=== PATIENT | female | born 1960 | race Caucasian/White ===

== ENCOUNTER 2024-02-07 11:10 | Outpatient (CLI) | payer OTHER, SELFPAY ==
--- NOTE | ~2024-02-07 | MR_ITS ---
MRI of the left knee Clinical history: Pain Technique: Coronal proton density and proton density-weighted images, sagittal proton-density and T2 fat-sat images, and axial proton-density fat-saturated images were acquired. Findings: Anterior and posterior cruciate ligaments are intact. Medial collateral ligament and the la teral collateral ligament conflux are intact. Popliteus tendon is intact. There is probable complex tear of the posterior horn/body of the medial meniscus. No definite lateral meniscal tear seen. There is grade IV chondromalacia the medial tibial plateau with subchondral reactive marrow edema and early subchondral cyst formation. Lateral compartment articular cartilage is well preserved. There i s extensive grade IV chondromalacia patella at the apex and medial patellar facet. There is mild diff use chondral thinning of the femoral trochlea. Small tricompartmental osteophytes are present. Extensor mechanism is intact. Small joint effusion present, with small Hillman's cyst. There is mild ed tiam of the quadriceps fat pad. Impression: Complex tearing of the posterior horn/body of the medial meniscus. 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 Small joint effusion with small Hillman's cyst. Edema quadriceps fat pad could indicate impingement. Reviewed, dictated and finalized at location . Impression: Complex tearing of the posterior horn/body of the medial meniscus. 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 Small joint effusion with small Hillman's cyst. Edema quadriceps fat pad could indicate impingement.
== END 2024-02-07 11:11 ==
PROVIDERS: Visit Provider Family Medicine Sports Medicine
DX: S83.232A Complex tear of medial meniscus, current injury, left knee, initial encounter (principal); M94.262 Chondromalacia, left knee; M25.462 Effusion, left knee; M79.4 Hypertrophy of (infrapatellar) fat pad; M71.22 Synovial cyst of popliteal space [Baker], left knee; X58.XXXA Exposure to other specified factors, initial encounter
CPT/HCPCS: 73721